=== PATIENT | female | born 1980 | race Caucasian/White ===

== ENCOUNTER → 2016-07-10 | Outpatient (CLI) | payer OTHER | LOC: HEART 5 11:21 | DX: R00.2 Palpitations (principal) ==

== ENCOUNTER → 2016-07-19 | Outpatient (CLI) | payer OTHER | LOC: HEART 5 10:51 | DX: R00.2 Palpitations (principal); I51.9 Heart disease, unspecified; I34.0 Nonrheumatic mitral (valve) insufficiency; I34.8 Other nonrheumatic mitral valve disorders | CPT/HCPCS: 93306 ==